=== PATIENT | female | born 1955 | race Caucasian/White ===

== ENCOUNTER 2017-03-30 07:44 | Emergency (ER) | payer OTHER ==
[2017-03-30 07:50] VITALS: BP 132/63
[2017-03-30] MEDS ORDERED: AZITHROMYCIN 250 MG TABLET PO ONE (08:18)
[2017-03-30] MEDS ORDERED: PREDNISONE 20 MG TABLET PO ONE (08:18)
[2017-03-30] MEDS ORDERED: KETOROLAC TROMETHAMINE 60 MG/2 ML SDV IM ONE (08:18)
--- NOTE | 2017-03-30 08:23 | ER Document Report ---
ED General - General Mode of Arrival: Ambulatory Information source: Patient TRAVEL OUTSIDE OF THE [place] IN LAST 30 DAYS: No - General Chief Complaint: Headache >24 hrs old Stated Complaint: HEADACHE Time Seen by Provider: 03/30/17 08:06 Notes: Patient is a 62 year old female presenting to the emergency department complaining of a headache and sinus congestion onset 2 days ago. Patient states that the pain worsened last night. Patient states that she did a sinus rinse which produced thick colored mucous although this did not alleviate her symptoms. Patient also complains of chills. Patient states she has had a sinus surgery performed which resulted in a sinus infection in the past as well a a partial sigmoid resection and bladder repair. (RADHA MYERS) - Related Data Allergies/Adverse Reactions: No Known Allergies Allergy (Unverified 03/30/17 07:45) Past Medical History - General Information source: Patient - Social History Smoking Status: Unknown if Ever Smoked Lives with: Other - Patinet is in [facility], patient is from [place]. Family History: Reviewed & Not Pertinent Review of Systems - Review of Systems Constitutional: See HPI, Chills EENT: See HPI, Nose congestion, Sinus pressure Cardiovascular: No symptoms reported Respiratory: No symptoms reported Gastrointestinal: No symptoms reported Genitourinary: No symptoms reported Female Genitourinary: No symptoms reported Musculoskeletal: No symptoms reported Skin: No symptoms reported Hematologic/Lymphatic: No symptoms reported Neurological/Psychological: See HPI, Headaches -: Yes All other systems reviewed and negative Physical Exam - General General appearance: Appears well, Alert In distress: None - HEENT Head: Normocephalic, Atraumatic Tympanic membrane: Normal Sinus: Frontal - tender to percussion,, Maxillary - right tender to percussion, Tenderness - Respiratory Respiratory status: No respiratory distress - Abdominal Inspection: Normal Distension: No distension - Back Back: Normal - Extremities General upper extremity: Normal ROM General lower extremity: Normal ROM - Neurological Neuro grossly intact: Yes Cognition: Normal Orientation: AAOx4 [place] Coma Scale Eye Opening: Spontaneous Joselyn Coma Scale Verbal: Oriented Joselyn Coma Scale Motor: Obeys Commands [place] Coma Scale Total: 15 Speech: Normal - Psychological Associated symptoms: Normal affect, Normal mood - Skin Skin Temperature: Warm Skin Moisture: Dry Skin Color: Normal - Vital signs Vitals: Temp Pulse Resp BP Pulse Ox 98.6 F 85 16 132/63 H 100 03/30/17 07:49 03/30/17 07:49 03/30/17 07:49 03/30/17 07:49 03/30/17 07:49 - Vital Signs Vital signs: Temp Pulse Resp BP Pulse Ox 98.6 F 85 16 132/63 H 100 03/30/17 07:49 03/30/17 07:49 03/30/17 07:49 03/30/17 07:49 03/30/17 07:49 Discharge - Discharge Clinical Impression: Sinus headache Maxillary sinusitis, acute Qualifiers: Recurrence: not specified as recurrent Qualified Code(s): J01.00 - Acute maxillary sinusitis, unspecified Condition: Stable Disposition: HOME, SELF-CARE Additional Instructions: Sinusitis You have sinusitis, an infection of the sinus cavities of the face. The sinuses are air-filled chambers which open into the inside of the nose. Bacteria and pus fill a sinus, causing pain, drainage, and fever. Sinusitis is treated with antibiotics. Often, expectorants (to thin the sinus mucous) or decongestants (to reduce swelling) are prescribed as well. Healing requires seven to 10 days. Avoid chemical fumes, pollens, dusts, and smoke (especially cigarette smoke ). Keep the air humidified in your bedroom and work area and take plenty of liquids by mouth. This condition can be serious if the infection spreads. If your symptoms worsen, or if you develop severe headache, high fever, stiff neck, or a rash, you must call the doctor or return for re-evaluation. START THE AZITHROMYCIN AND PREDNISONE TOMORROW. TAKE THE PAIN MEDICATION NEEDED. DRINK PLENTY OF FLUIDS. GET PLENTY OF REST. FOLLOW UP WITH A LOCAL MEDICAL DOCTOR IF NOT IMPROVING. RETURN TO THE EMERGENCY ROOM IF ANY NEW OR WORSENING SYMPTOMS. Prescriptions: Azithromycin [Zithromax 250 mg Tablet] 250 mg PO DAILY #4 tablet Hydrocodone/Acetaminophen [Hydrocodon-Acetaminophen 5-325] 1 each PO Q4 PRN #12 tablet PRN Reason: For Headache Or Pain Prednisone [Deltasone 10 mg Tablet] 10 mg PO ASDIR PRN #15 tablet PRN Reason: Scribe Attestation: 03/30/17 08:34 I personally performed the services described in the documentation, reviewed and edited the documentation which was dictated to the scribe in my presence, and it accurately records my words and actions. (IRIS REAL) Scribe Documentation - Scribe Written by Ortiz:: Ortiz Dailey, 03/30/2017 08:26 acting as scribe for :: Audrey
== END 2017-03-30 08:40 | disposition home or self-care (01) ==
LOC: ER 07:44
DX: J01.00 Acute maxillary sinusitis, unspecified (principal); R51 Headache; R09.81 Nasal congestion; Z98.890 Other specified postprocedural states; R68.83 Chills (without fever)
CPT/HCPCS: 99283; 96372; J1885; J7512